=== PATIENT | female | born 1960 | race Hispanic/Latino ===

== ENCOUNTER 2019-09-12 16:49 | Emergency (ER) | payer BC, OTHER ==
[~2019-09-12] VITALS: Ht 160 cm; Wt 74.8 kg
[2019-09-12] MEDS ORDERED: SODIUM CHLORIDE 0.9% 1000ML 1,000 ML IV STA (17:43)
[2019-09-12] MEDS ORDERED: CEFTRIAXONE SOD 1 GM/NS 50 ML 50 ML IV ONE (18:00)
[2019-09-12] MEDS ORDERED: AZITHROMYCIN 500MG/NS 250 ML 250 ML IV ONE (18:30)
[2019-09-12 18:42] LABS: EOSINOPHILS % 0.3 % (0.0-6.0); HEMATOCRIT 40.2 % (34.2-44.1); HEMOGLOBIN 13.1 g/dL (12.0-16.0); LYMPHOCYTES # (AUTO) 0.9 (1.0-3.2); LYMPHOCYTES % 29.8 % (18.0-39.1); MEAN CORPUSCULAR HEMOGLOBIN 28.6 pg (28-32); MEAN CORPUSCULAR HGB CONC 32.6 g/dL (31-35); MEAN CORPUSCULAR VOLUME 87.8 fL (81-99); MONOCYTES # (AUTO) 0.3 (0.2-0.8); NEUTROPHILS # (AUTO) 1.9 (2.1-6.9); NEUTROPHILS % 61.3 % (38.7-80.0); PLATELET COUNT 141 x10e3/uL (140-360); RED BLOOD COUNT 4.58 x10e6/uL (3.6-5.1); RED CELL DISTRIBUTION WIDTH 12.4 % (11.7-14.4)
--- NOTE | 2019-09-12 18:53 | Diagnostic Imaging Report ---
EXAMINATION: CHEST SINGLE (PORTABLE) COMPARISON: None INDICATION: Fever, chest pain ^Y ^COUGH, FEVER ^[id number] ^1820 DISCUSSION: Frontal view of the chest obtained at 1831 hours. HEART AND MEDIASTINUM: The heart is top normal in size. Fullness of the right hilum may be secondary to portable technique. LINES: None. LUNGS/PLEURA: Mild eventration of the right diaphragm. No pneumonia or pulmonary edema. No pleural effusion or pneumothorax. BONES AND SOFT TISSUES: No focal osseous lesion. The soft tissues are normal. IMPRESSION: No acute pulmonary process. Fullness of the right hilum likely due to portable technique. Recommend correlation with PA and lateral chest x-ray if clinically feasible. Signed by: Dr. Harsha Baker MD on 09/12/2019 6:49 PM
[2019-09-12] MEDS ORDERED: ACETAMINOPHEN 325 MG TAB PO ONE (19:15)
[2019-09-12] MEDS ORDERED: ACETAMINOPHEN 325 MG TAB ONE (19:19)
[2019-09-12 19:28] LABS: CLARITY,URINE CLOUDY (CLEAR); COLOR,URINE YELLOW (YELLOW); INR 0.92; PROTHROMBIN TIME 12.9 seconds (11.9-14.5)
[2019-09-12 19:29] LABS: BILIRUBIN,URINE NEGATIVE (NEGATIVE); KETONES,URINE TRACE (NEGATIVE); LEUKOCYTE ESTERASE ,URINE SMALL (NEGATIVE); NITRITE,URINE NEGATIVE (NEGATIVE); PARTIAL THROMBOPLASTIN TIME 28.6 seconds (23.8-35.5); PROTEIN,URINE DIPSTICK 1+ (NEGATIVE); URINE UROBILINOGEN 0.2 mg/dL (0.2 - 1)
[2019-09-12 19:45] LABS: ALANINE AMINOTRANSFERASE 158 IU/L (0-55); ALBUMIN 3.2 g/dL (3.5-5.0); ALBUMIN/GLOBULIN RATIO 0.8 (0.8-2.0); ALKALINE PHOSPHATASE 145 IU/L (40-150); ANION GAP 13.1 mmol/L (8-16); BLOOD UREA NITROGEN 11 mg/dL (7-26); BUN/CREATININE RATIO 18 (6-25); CALCIUM 8.9 mg/dL (8.4-10.2); CARBON DIOXIDE 26 mmol/L (22-29); CHLORIDE 102 mmol/L (98-107); CREATINE KINASE 29 IU/L (29-168); EST GLOMERULAR FILTRATION RATE > 60 ML/MIN (60-); GLUCOSE 166 mg/dL (74-118); MAGNESIUM 1.6 MG/DL (1.3-2.1); POTASSIUM 3.1 mmol/L (3.5-5.1); SODIUM 138 mmol/L (136-145)
[2019-09-12 20:03] LABS: B-TYPE NATRIURETIC PEPTIDE2 < 10.0 pg/mL (0-100)
[2019-09-12 20:09] LABS: BACTERIA,URINE MANY /HPF
[2019-09-12 20:10] LABS: EPITHELIAL CELLS,URINE MODERATE /LPF; WBC,URINE (MAN) >50 /HPF (0-5)
--- NOTE | 2019-09-12 20:25 | Emergency Department Note ---
History of Present Illnes History of Present Illness Chief Complaint: COVID PUI History of Present Illness This is a 59 year old female complaints of cough, fever, chest pain, nausea, vomiting, diarrhea, headache, body aches and chills. She states that the symptoms started about 4 days ago. Patient reports that she feels the chest pain when she coughs . Historian: Patient Arrival Mode: Car Onset (how long ago): day(s) (4) Location: HEAD, CHEST, GENERALIZED BODY Quality: ACHES, PAIN, COUGH, Radiation: Reports non-radiation Severity: moderate Onset quality: gradual Duration (how long): day(s) (4) Timing of current episode: constant Progression: unchanged Chronicity: new Context: Denies recent illness, Denies recent surgery Relieving factors: none Exacerbating factors: none Associated symptoms: Reports chest pain, Reports cough (DRY), Reports fever/chills, Reports headaches, Reports nausea/vomiting, Reports shortness of breath, Reports other (BODY ACHES) Past Medical/Family History Physician Review I have reviewed the patient's past medical and family history. Any updates have been documented here. Past Medical History Recent Fever: Yes Clinical Suspicion of Infectio: No New/Unexplained Change in Ment: No Past Medical History: Hypertension, Diabetes Past Surgical History: Cholecysctectomy Social History Smoking Cessation: Never Smoker Counseling Performed: No Alcohol Use: Occasional Any Illegal Drug Use: No TB Exposure/Symptoms: No Physically hurt or threatened: No Other Last Tetanus: unknown Any Pre-Existing Lines (PICC,: No Is patient up to date on immun: Yes Last Flu: UTD Last Pneumovax: none Review of Systems Review of Systems Constitutional: Reports as per HPI EENTM: Reports no symptoms Cardiovascular: Reports as per HPI Respiratory: Reports as per HPI Gastrointestinal: Reports as per HPI Genitourinary: Reports no symptoms Musculoskeletal: Reports no symptoms Integumentary: Reports no symptoms Neurological: Reports no symptoms Psychological: Reports no symptoms Endocrine: Reports no symptoms Hematological/Lymphatic: Reports no symptoms Physical Exam Related Data Allergies: Coded Allergies: No Known Allergies (Unverified , 09/12/19) Triage Vital Signs Vital Signs Date Time Temp Pulse Resp B/P (MAP) Pulse Ox O2 Delivery O2 Flow Rate FiO2 09/12/19 17:02 98.9 99 27 151/74 97 Vital signs reviewed: Yes Physical Exam CONSTITUTIONAL Constitutional: Present well-developed, Present well-nourished HENT HENT: Present normocephalic, Present atraumatic, Present oropharynx c lear/moist, Present nose normal HENT L/R: Present left ext ear normal, Present right ext ear normal EYES Eyes: Reports PERRL, Reports conjunctivae normal NECK Neck: Present ROM normal PULMONARY Pulmonary: Present effort normal, Present breath sounds normal CARDIOVASCULAR Cardiovascular: Present regular rhythm, Present heart sounds normal, Present capillary refill normal, Present normal rate GASTROINTESTINAL Abdominal: Present soft, Present nontender, Present bowel sounds normal GENITOURINARY Genitourinary: Present exam deferred SKIN Skin: Present warm, Present dry MUSCULOSKELETAL Musculoskeletal: Present ROM normal NEUROLOGICAL Neurological: Present alert, Present oriented x 3, Present no gross motor or sensory deficits PSYCHOLOGICAL Psychological: Present mood/affect normal, Present judgement normal Results Laboratory Result Diagram: 09/12/19 1800 09/12/19 1800 Laboratory Sodium Chloride 1,000 ml @ 0 mls/hr Q0M STAT IV Last administered on 09/12/19at 19:10; Admin Dose 999 MLS/HR; Start 09/12/19 at 17:43; Stop 09/12/19 at 17:47; Status DC Ceftriaxone Sodium 50 ml @ 100 mls/hr ONCE ONCE IV Last administered on 09/12/19at 19:10; Admin Dose 100 MLS/HR; Start 09/12/19 at 18:00; Stop 09/12/19 at 18:29; Status DC Azithromycin 250 ml @ 200 mls/hr NOW ONCE IV Last administered on 09/12/19at 19:50; Admin Dose 200 MLS/HR; Start 09/12/19 at 18:30; Stop 09/12/19 at 19:44; Status DC Acetaminophen 975 mg ONCE ONCE PO Last administered on 09/12/19at 19:18; Admin Dose 975 MG; Start 09/12/19 at 19:15; Stop 09/12/19 at 19:16; Status DC Acetaminophen 975 mg STK-MED ONCE .ROUTE ; Start 09/12/19 at 19:19; Stop 09/12/19 at 19:13; Status DC Laboratory Tests Test 09/12/19 18:00 White Blood Count 3.12 x10e3/uL (4.8-10.8) Red Blood Count 4.58 x10e6/uL (3.6-5.1) Hemoglobin 13.1 g/dL (12.0-16.0) Hematocrit 40.2 % (34.2-44.1) Mean Corpuscular Volume 87.8 fL (81-99) Mean Corpuscular Hemoglobin 28.6 pg (28-32) Mean Corpuscular Hemoglobin Concent 32.6 g/dL (31-35) Red Cell Distribution Width 12.4 % (11.7-14.4) Platelet Count 141 x10e3/uL (140-360) Neutrophils (%) (Auto) 61.3 % (38.7-80.0) Lymphocytes (%) (Auto) 29.8 % (18.0-39.1) Monocytes (%) (Auto) 8.0 % (4.4-11.3) Eosinophils (%) (Auto) 0.3 % (0.0-6.0) Basophils (%) (Auto) 0.0 % (0.0-1.0) Neutrophils # (Auto) 1.9 (2.1-6.9) Lymphocytes # (Auto) 0.9 (1.0-3.2) Monocytes # (Auto) 0.3 (0.2-0.8) Eosinophils # (Auto) 0.0 (0.0-0.4) Basophils # (Auto) 0.0 (0.0-0.1) Absolute Immature Granulocyte (auto 0.02 x10e3/uL (0-0.1) Prothrombin Time 12.9 seconds (11.9-14.5) Prothromb Time International Ratio 0.92 Activated Partial Thromboplast Time 28.6 seconds (23.8-35.5) Urine Color Yellow (YELLOW) Urine Clarity Cloudy (CLEAR) Urine pH 5.5 (5 - 7) Urine Specific Gile >=1.030 (1.010-1.025) Urine Protein 1+ (NEGATIVE) Urine Glucose (UA) 2+ (NEGATIVE) Urine Ketones Trace (NEGATIVE) Urine Blood Moderate (NEGATIVE) Urine Nitrite Negative (NEGATIVE) Urine Bilirubin Negative (NEGATIVE) Urine Urobilinogen 0.2 mg/dL (0.2 - 1) Urine Leukocyte Esterase Small (NEGATIVE) Urine RBC 11-20 /HPF (0-5) Urine WBC >50 /HPF (0-5) Urine Epithelial Cells Moderate /LPF (NONE) Urine Bacteria Many /HPF (NONE) Sodium Level 138 mmol/L (136-145) Potassium Level 3.1 mmol/L (3.5-5.1) Chloride Level 102 mmol/L (98-107) Carbon Dioxide Level 26 mmol/L (22-29) Anion Gap 13.1 mmol/L (8-16) Blood Urea Nitrogen 11 mg/dL (7-26) Creatinine 0.60 mg/dL (0.57-1.11) Estimat Glomerular Filtration Rate > 60 ML/MIN (60-) BUN/Creatinine Ratio 18 (6-25) Glucose Level 166 mg/dL (74-118) Lactic Acid Level 2.6 mmol/L (0.5-2.0) Calcium Level 8.9 mg/dL (8.4-10.2) Magnesium Level 1.6 MG/DL (1.3-2.1) Total Bilirubin 0.4 mg/dL (0.2-1.2) Aspartate Amino Transf (AST/SGOT) 226 IU/L (5-34) Alanine Aminotransferase (ALT/SGPT) 158 IU/L (0-55) Alkaline Phosphatase 145 IU/L (40-150) Creatine Kinase 29 IU/L (29-168) Creatine Kinase MB 0.30 ng/mL (0-5.0) Troponin I < 0.001 ng/mL (0-0.300) B-Type Natriuretic Peptide < 10.0 pg/mL (0-100) Total Protein 7.3 g/dL (6.5-8.1) Albumin 3.2 g/dL (3.5-5.0) Globulin 4.1 g/dL (2.3-3.5) Albumin/Globulin Ratio 0.8 (0.8-2.0) Lab results reviewed: Yes Imaging Imaging results reviewed: Yes Impressions EXAMINATION: CHEST SINGLE (PORTABLE) COMPARISON: None INDICATION: Fever, chest pain ^Y ^COUGH, FEVER ^[id number] ^1819 DISCUSSION: Frontal view of the chest obtained at 1831 hours. HEART AND MEDIASTINUM: The heart is top normal in size. Fullness of the right hilum may be secondary to portable technique. LINES: None. LUNGS/PLEURA: Mild eventration of the right diaphragm. No pneumonia or pulmonary edema. No pleural effusion or pneumothorax. BONES AND SOFT TISSUES: No focal osseous lesion. The soft tissues are normal. IMPRESSION: No acute pulmonary process. Fullness of the right hilum likely due to portable technique. Recommend correlation with PA and lateral chest x-ray if clinically feasible. Signed by: Dr. 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: Interpreted by ED physician Date: Sep 12, 2019 Time: 20:31 Rhythm: sinus rhythm Rate: normal BPM: 86 QRS axis: left ST segments normal: Yes T waves normal: Yes Other findings: LVH Clinical Impression: abnormal ECG Additional Comments PROLONGED QT Assessment & Plan Medical Decision Making [facility] PT WITH FEVER, BODY ACHES, DRY COUGH, N/V/D CBC, CMP, COVID 19, UA, EKG, CXR, BLOOD CULTURES, LACTIC BENIGNO, URINE CULTURE ORD ERED TO EVAL FOR SEPSIS, UTI, PNEUMONIA, ELECTROLYTE ABNORMALITY, NS 1 LITER IV BOLUS ORDERED ROCEPHIN 1 GRAM IV ORDERED TYLENOL 650 MG PO ORDERED INITIAL LACTIC ACID 2.[address] RAHMAN AT [facility], HE ACCEPTS PT FOR TRANSFER Assessment & Plan Final Impression: (1) UTI (urinary tract infection) (2) COVID-19 Depart Disposition: TRANS TO OTHER [facility] Last Vital Signs Date Time Temp Pulse Resp B/P (MAP) Pulse Ox O2 Delivery O2 Flow Rate FiO2 09/12/19 19:08 101.3 92 29 148/77 100 Medications in the ED Sodium Chloride 1,000 ml @ 0 mls/hr Q0M STAT IV Last administered on 09/12/19at 19:10; Admin Dose 999 MLS/HR; Start 09/12/19 at 17:43; Stop 09/12/19 at 17:47; Status DC Ceftriaxone Sodium 50 ml @ 100 mls/hr ONCE ONCE IV Last administered on 09/12/19at 19:10; Admin Dose 100 MLS/HR; Start 09/12/19 at 18:00; Stop 09/12/19 at 18:29; Status DC Azithromycin 250 ml @ 200 mls/hr NOW ONCE IV Last administered on 09/12/19at 19:50; Admin Dose 200 MLS/HR; Start 09/12/19 at 18:30; Stop 09/12/19 at 19:44; Status DC Acetaminophen 975 mg ONCE ONCE PO Last administered on 09/12/19at 19:18; Admin Dose 975 MG; Start 09/12/19 at 19:15; Stop 09/12/19 at 19:16; Status DC Acetaminophen 975 mg STK-MED ONCE .ROUTE ; Start 09/12/19 at 19:19; Stop 09/12/19 at 19:13; Status DC MIRYAM MATHEWS MD Sep 12, 2019 20:24
--- NOTE | 2019-09-13 00:52 | NUR ---
Attemted report at this time. Nurse states she will call me back.
== END 2019-09-13 01:05 | disposition other institution (70) ==
LOC: ER 16:49
DX: R50.9 Fever, unspecified (principal); R05 Cough; U07.1 COVID-19; R11.2 Nausea with vomiting, unspecified; R19.7 Diarrhea, unspecified; N39.0 Urinary tract infection, site not specified
CPT/HCPCS: 36415; 71045; 80053; 81001; 82550; 82553; 83605; 83735; 83880; 84484; 85025; 85610; 85730; 87040; 87086; 87635; 93005; J0456; J0696; J7030; 87186; 99284